=== PATIENT | female | born 1985 | race Caucasian/White ===

== ENCOUNTER 2018-09-16 16:35 | Emergency (ER) | payer OTHER ==
[~2018-09-16] VITALS: Ht 175.3 cm; Wt 59.0 kg
[2018-09-16 17:05] LABS: ABSOLUTE NEUTROPHILS 3.8 thou/uL (1.4-8.2); BASOPHILS 0.8 % (0.0-2.0); EOSINOPHILS 1.3 % (0.0-3.0); HEMATOCRIT 39.4 % (37.0-47.0); HEMOGLOBIN 13.2 gm/dL (12.0-15.0); LYMPHOCYTES 25.3 % (24.0-44.0); MCH 26.8 pg (26.0-34.0); MCHC 33.6 g/dL (28.0-37.0); MCV 79.7 fL (80.0-100.0); MONOCYTES 6.5 % (1.0-8.0); PLATELET COUNT 214 thou/uL (150-400); POLYS 66.1 % (36.0-66.0); RBC 4.94 mil/uL (4.20-5.00); RDW 13.3 % (10.5-14.5); WBC 5.7 thou/uL (4.0-11.0)
[2018-09-16 17:12] LABS: CREATININE 0.7 mg/dL (0.6-1.0); POTASSIUM 3.9 mmol/L (3.5-5.1)
--- NOTE | 2018-09-16 17:20 | EKG ---
[place] [address] [facility] [place] [address] ELECTROCARDIOGRAM REPORT Name: MARYBETH WALSH Room #: [facility]..#: [id number] ������������������ Admission: ������������������ Attend Phys: Discharge: ������������������ Date of : 85 Report #: [id number] ����������������������������������������������������������������� [id number] THIS REPORT FOR: //name// [facility] ED Test Date: 2018-09-16 Test Time: 16:38:16 Pat Name: MARYBETH WALSH Department: Room: Gender: F Manager [employer]: JUAN JOSE : 1985 Requested By: Omar Dorado Order Number: [id number] MD: Ben Maradiaga Measurements Intervals Heath Rate: 77 P: 55 TX: 136 QRS: -11 QRSD: 93 T: -27 QT: 379 QTc: 429 Interpretive Statements Sinus rhythm Probable anteroseptal infarct, old Borderline repolarization abnormality No previous ECG available for comparison Electronically Signed On 09-16-2018 17:20:02 CDT by Ben Maradiaga [email or web address] ��������������������������������������������� <ELECTRONICALLY SIGNED> ���������������������������������������� By: Ben Maradiaga MD ��������������������������������������������� 09/16/18 1720 1638 1638 MD ERICKA Mensah
[2018-09-16 17:26] LABS: ALBUMIN 4.4 g/dL (3.4-5.0); TOTAL BILIRUBIN 0.4 mg/dL (<0.1-1.0); TOTAL PROTEIN 8.4 g/dL (6.4-8.2)
[2018-09-16 17:59] VITALS: BP 107/68
== END 2018-09-16 18:00 | disposition home or self-care (01) ==
LOC: ER 16:35
PROVIDERS: Physician Assistant
DX: R07.89 Other chest pain (principal); K74.60 Unspecified cirrhosis of liver